=== PATIENT | female | born 1945 | race Caucasian/White ===

== ENCOUNTER 2022-06-04 13:58 | Outpatient (CLI) | payer MEDICARE | END 2022-06-04 13:59 | disposition home or self-care (01) | LOC: CSHRAD 13:58 | PROVIDERS: ATTEND Internal Medicine | DX: T14.90XA Injury, unspecified, initial encounter (principal); W19.XXXA Unspecified fall, initial encounter | CPT/HCPCS: 72170; 72220 ==

== ENCOUNTER 2022-06-29 03:52 | Emergency (ER) | payer MEDICARE ==
[2022-06-29] MEDS ORDERED: Acetaminophen 500 MG TAB ONE (06:12)
[2022-06-29 06:23] LABS: #Eosinphils 0.1 10x3/uL (0.0-0.5); #Monocytes 0.5 10x3/uL (0.0-1.1); #Neutrophils 4.6 10x3/uL (1.5-8.4); %Basophils 0.2 % (0.0-2.0); %Eosinophils 1.9 % (0.0-6.0); %Lymphocytes 17.8 % (18.0-47.0); %Monocytes 8.3 % (0.0-10.0); %Neutrophils 71.6 % (40.0-75.0); Hemoglobin 13.9 g/dL (12.0-15.5); Mean Corpuscular HGB CONC 34.4 g/dL (32.0-36.0); Mean Corpuscular Hemoglobin 29.1 pg (27.0-33.0); Mean Corpuscular Volume 84.7 fl (81.6-98.3); Mean Platelet Volume 9.4 fl (7.4-10.4); Platelet Count 267 10x3/uL (150-450); RBC Distribution Width 13.2 % (11.5-14.5); Red Blood Cell (RBC) Count 4.77 10x6/uL (3.90-5.03); White Blood Cell (WBC) Count 6.4 10x3/uL (3.5-10.5)
[2022-06-29 06:31] LABS: ALT (SGPT) 25 U/L (8-55); AST (SGOT) 20 U/L (5-34); Albumin 4.5 g/dL (3.4-4.8); Alkaline Phosphatase 67 U/L (40-110); Anion Gap 15 mmol/L (10-20); BUN (Urea Nitrogen) 15 mg/dL (9.8-20.1); Bilirubin, Total 0.8 mg/dL (0.2-1.2); CK (CPK) 120 U/L (29-168); Calc. Creatinine Clearance 0 mL/min (70-130); Calcium 9.8 mg/dL (7.8-10.44); Carbon Dioxide 24 mmol/L (23-31); Chloride 104 mmol/L (98-107); Estimated GFR 86; Globulin 2.7 g/dL (2.4-3.5); Glucose 112 mg/dL (83-110); Lipase 20 U/L (8-78); Potassium 4.1 mmol/L (3.5-5.1); Protein, Total 7.2 g/dL (5.8-8.1); Sodium 139 mmol/L (136-145)
[2022-06-29] MEDS ORDERED: Iopamidol 300 61% 100 ML VIAL FS ONE (16:05)
== END 2022-06-29 08:10 | disposition home or self-care (01) ==
LOC: CSHERS 03:52
DX: S22.31XA Fracture of one rib, right side, initial encounter for closed fracture (principal); K59.00 Constipation, unspecified; E78.5 Hyperlipidemia, unspecified; Z79.899 Other long term (current) drug therapy; W19.XXXA Unspecified fall, initial encounter
CPT/HCPCS: 71260; 74177; 80053; 82550; 83605; 83690; 85025; Q9967

== ENCOUNTER 2022-07-02 03:18 | Inpatient (IN) | payer MEDICARE ==
[2022-07-02 03:53] LABS: #Eosinphils 0.1 10x3/uL (0.0-0.5); #Monocytes 0.4 10x3/uL (0.0-1.1); #Neutrophils 4.6 10x3/uL (1.5-8.4); %Basophils 0.3 % (0.0-2.0); %Eosinophils 1.1 % (0.0-6.0); %Lymphocytes 16.8 % (18.0-47.0); %Monocytes 6.8 % (0.0-10.0); %Neutrophils 74.7 % (40.0-75.0); Hemoglobin 14.4 g/dL (12.0-15.5); Mean Corpuscular HGB CONC 34.4 g/dL (32.0-36.0); Mean Corpuscular Volume 84.1 fl (81.6-98.3); Mean Platelet Volume 9.2 fl (7.4-10.4); Platelet Count 289 10x3/uL (150-450); RBC Distribution Width 13.1 % (11.5-14.5); Red Blood Cell (RBC) Count 4.97 10x6/uL (3.90-5.03); White Blood Cell (WBC) Count 6.2 10x3/uL (3.5-10.5)
[2022-07-02] MEDS ORDERED: Pantoprazole 40 MG VIAL ONE (03:55)
[2022-07-02 04:13] LABS: ALT (SGPT) 32 U/L (8-55); AST (SGOT) 27 U/L (5-34); Albumin 4.9 g/dL (3.4-4.8); Alkaline Phosphatase 73 U/L (40-110); Anion Gap 15 mmol/L (10-20); BUN (Urea Nitrogen) 18 mg/dL (9.8-20.1); Calc. Creatinine Clearance 0 mL/min (70-130); Carbon Dioxide 27 mmol/L (23-31); Chloride 97 mmol/L (98-107); Estimated GFR 73; Globulin 2.5 g/dL (2.4-3.5); Glucose 151 mg/dL (83-110); Lipase 21 U/L (8-78); Potassium 4.1 mmol/L (3.5-5.1); Protein, Total 7.4 g/dL (5.8-8.1); Sodium 135 mmol/L (136-145)
[2022-07-02 05:20] LABS: Bilirubin Neg (Negative); Blood, Urine 250 (Negative); Clarity Clear (Clear); Glucose, Urine (Dipstick) Normal (Negative); Ketone, Urine Negative (Negative); Leukocyte 500 (Negative); Nitrite Negative (Negative); Protein, Urine (Dipstick) 30 mg/dl (Neg-Trace); Specific Gravity, Urine 1.015 (1.002-1.036); Urobilinogen Normal mg/dL (Less than 2)
[2022-07-02] MEDS ORDERED: Ondansetron PF 4 MG/2 ML Vial ONE ×2 (05:49→17:59)
[2022-07-02 06:04] LABS: WBC/HPF 21-50 HPF (0-3)
[2022-07-02 06:05] LABS: Bacteria/HPF 4+ HPF (None Seen); Squamous Epithelial 0-3 HPF (0-3)
[2022-07-02] MEDS ORDERED: Ketorolac Tromethamine 30 MG/ML VIAL ONE (06:13)
[2022-07-02] MEDS ORDERED: Morphine 4 MG/ML VIAL SLOW IVP PRN (06:38)
[2022-07-02] MEDS ORDERED: Ondansetron PF 4 MG/2 ML Vial IVP PRN (06:38)
[2022-07-02] MEDS ORDERED: cefTRIAXone\\ROCEPHIN 2 GM VIAL ONE (06:38)
[2022-07-02] MEDS ORDERED: Morphine 2 MG/ML VIAL SLOW IVP PRN (06:46)
[2022-07-02 07:40] LABS: Magnesium 2.2 mg/dL (1.6-2.6)
[2022-07-02 08:24] VITALS: BMI 21.7
[2022-07-02] MEDS: Enoxaparin Sodium 40 MG/0.4 ML SYRINGE SC SCH (09:30)
[2022-07-02] MEDS: D5 1/2 NS w/20 mEq KCL 1,000 ML IV SCH ×3 (09:30→22:10)
[2022-07-02] MEDS ORDERED: Albuterol Sulfate 2.5 mg/3 ml Neb NEB PRN (13:00)
[2022-07-02] MEDS ORDERED: Iopamidol 300 61% 100 ML VIAL FS ONE (14:31)
[2022-07-02] MEDS ORDERED: EPINEPHrine 1 MG/ML AMP ONE (14:50)
[2022-07-02] MEDS ORDERED: Bupivacaine 0.25% HCL 30 ML VIAL ONE (14:50)
[2022-07-02] MEDS ORDERED: Rocuronium Bromide 10 MG/ML (10ML VIAL) ONE (16:10)
[2022-07-02] MEDS ORDERED: Lidocaine 1% PF 5 ML VIAL ONE (16:10)
[2022-07-02] MEDS ORDERED: Succinylcholine 200 MG/10 ml SYRINGE FS ONE (16:10)
[2022-07-02] MEDS ORDERED: SUGAMMADEX SODIUM 200 MG/2 ML VIAL ONE (16:13)
[2022-07-02] MEDS ORDERED: Phenylephrine 10 MG/ML VIAL ONE (16:13)
[2022-07-02] MEDS ORDERED: Fentanyl 100 MCG/2 ML VIAL ONE ×2 (16:20→18:45)
[2022-07-02] MEDS ORDERED: PROPOFOL 20 ML ONE ×2 (16:20→17:51)
[2022-07-02] MEDS ORDERED: ceFOXitin 1 GM VIAL ONE (17:42)
[2022-07-02] MEDS ORDERED: Polyethylene Glycol 3350 17 GM Packet PO SCH (18:30)
[2022-07-02] MEDS: diphenhydrAMINE 50 MG/ML VIAL IVP SCH ×2 (21:44→22:13)
[2022-07-02] MEDS ORDERED: traZODone HCl 50 MG TAB PO SCH (22:15)
[2022-07-03 05:09] LABS: #Eosinphils 0.1 10x3/uL (0.0-0.5); #Monocytes 0.5 10x3/uL (0.0-1.1); %Basophils 0.2 % (0.0-2.0); %Eosinophils 2.4 % (0.0-6.0); %Monocytes 9.2 % (0.0-10.0); Hemoglobin 12.3 g/dL (12.0-15.5); Mean Corpuscular HGB CONC 33.8 g/dL (32.0-36.0); Mean Corpuscular Hemoglobin 29.1 pg (27.0-33.0); Mean Corpuscular Volume 86.1 fl (81.6-98.3); Mean Platelet Volume 9.3 fl (7.4-10.4); Platelet Count 227 10x3/uL (150-450); RBC Distribution Width 13.3 % (11.5-14.5); Red Blood Cell (RBC) Count 4.23 10x6/uL (3.90-5.03); White Blood Cell (WBC) Count 5.9 10x3/uL (3.5-10.5)
[2022-07-03 05:37] LABS: Anion Gap 10 mmol/L (10-20); BUN (Urea Nitrogen) 11 mg/dL (9.8-20.1); Calc. Creatinine Clearance 65 mL/min (70-130); Calcium 8.5 mg/dL (7.8-10.44); Carbon Dioxide 26 mmol/L (23-31); Chloride 107 mmol/L (98-107); Estimated GFR 89; Glucose 121 mg/dL (83-110); Magnesium 2.1 mg/dL (1.6-2.6); Potassium 3.9 mmol/L (3.5-5.1); Sodium 139 mmol/L (136-145)
[2022-07-03] MEDS: D5 1/2 NS w/20 mEq KCL 1,000 ML IV SCH ×2 (07:15→12:42)
[2022-07-03] MEDS: Enoxaparin Sodium 40 MG/0.4 ML SYRINGE SC SCH (08:32)
[2022-07-03] MEDS ORDERED: Polyethylene Glycol 3350 17 GM Packet PO SCH (09:00)
[2022-07-03 11:44] VITALS: BP 158/76; TEMP 97.3
== END 2022-07-03 14:35 | disposition home or self-care (01) | DRG 358 ==
LOC: CSHERS 03:18 → SUATTDRO 03:18 → CSHTELE 08:01
PROVIDERS: ADMIT Family Medicine; ATTEND Family Medicine
PROC: 0D9670Z Drainage of Stomach with Drainage Device, Via Natural or Artificial Opening (ICD-10-PCS; principal; 2022-07-02)
PROC: 0WJG4ZZ Inspection of Peritoneal Cavity, Percutaneous Endoscopic Approach (ICD-10-PCS; 2022-07-02)
DX: K56.600 Partial intestinal obstruction, unspecified as to cause (principal); K59.00 Constipation, unspecified; E78.5 Hyperlipidemia, unspecified; S22.32XD Fracture of one rib, left side, subsequent encounter for fracture with routine healing; G25.81 Restless legs syndrome; J45.20 Mild intermittent asthma, uncomplicated; K40.90 Unilateral inguinal hernia, without obstruction or gangrene, not specified as recurrent; Z79.899 Other long term (current) drug therapy; Z90.710 Acquired absence of both cervix and uterus; Z98.890 Other specified postprocedural states; Z80.9 Family history of malignant neoplasm, unspecified; Z82.49 Family history of ischemic heart disease and other diseases of the circulatory system
CPT/HCPCS: 36415; 71045; 74019; 74177; 80048; 80053; 81003; 81015; 83605; 83690; 83735; 84484; 85025; 93005; 94760; C9113; J0171; J0694; J0696; J1200; J1650; J1885; J2370; J2405; J2704; J3010; J3480; Q9967; S0020; U0003; U0005